=== PATIENT | male | born 1995 | race Hispanic/Latino ===

== ENCOUNTER 2020-10-16 23:30 | Emergency (ER) | payer OTHER ==
[~2020-10-16] VITALS: Ht 167.6 cm; Wt 79.4 kg
[2020-10-16 23:54] VITALS: BP 165/110
[2020-10-17 00:03] VITALS: BP 158/96
[2020-10-17 00:48] LABS: CREATININE 0.9 mg/dL (0.5-1.5); POTASSIUM 3.7 mmol/L (3.5-5.1)
[2020-10-17 00:50] LABS: EOSINOPHILS % (AUTO) 4.7 % (0.0-8.0); HEMATOCRIT 42.9 % (42-54); LYMPHOCYTES % (AUTO) 28.3 % (21.0-51.0); MEAN CORPUSCULAR HGB CONC 34.7 g/dL (32.0-36.0); MEAN CORPUSCULAR VOLUME 92.3 fL (79-99); MONOCYTES % (AUTO) 12.8 % (3.0-13.0); PLATELET COUNT (AUTO) 316 K/uL (130-400); RED BLOOD CELL COUNT(AUTO) 4.65 MIL/uL (4.50-6.20); RED CELL DISTRIBUTION WIDTH 11.6 % (11.0-15.5); WHITE BLOOD COUNT (AUTO) 4.9 K/uL (4.8-10.8)
[2020-10-17 00:52] LABS: ALBUMIN 4.4 g/dL (3.5-5.0); BILIRUBIN,TOTAL 0.7 mg/dL (0.2-1.0); TOTAL PROTEIN, SERUM 8.4 g/dL (6.0-8.3)
[2020-10-17 00:55] VITALS: BP 152/98
[2020-10-17 01:03] LABS: APPEARANCE,URINE Turbid (CLEAR); BILIRUBIN,URINE Negative (NEGATIVE); COLOR,URINE Yellow (YELLOW); GLUCOSE, URINE (UA) Negative (NEGATIVE); KETONES,URINE Negative (NEGATIVE); LEUKOCYTE ESTERASE ,URINE Negative (NEGATIVE); NITRATE,URINE Negative (NEGATIVE); OCCULT BLOOD,URINE Negative (NEGATIVE); PROTEIN,URINE Negative (NEGATIVE)
[2020-10-17 01:10] LABS: AMPHET/METH SCREEN,URINE NEGATIVE (NEGATIVE); BARBITURATE SCREEN, URINE NEGATIVE (NEGATIVE); BENZODIAZEPINES SCREEN,URINE NEGATIVE (NEGATIVE); CANNABINOID SCREEN,URINE NEGATIVE (NEGATIVE); COCAINE SCREEN,URINE NEGATIVE (NEGATIVE); OPIATE SCREEN,URINE NEGATIVE (NEGATIVE); PHENCYCLIDINE SCREEN,URINE NEGATIVE (NEGATIVE)
[2020-10-17] MEDS ORDERED: LORAZEPAM 1 MG TABLET PO ONE (02:00)
[2020-10-17] MEDS ORDERED: LISI10TA24 PO (02:05)
[2020-10-17] MEDS ORDERED: ALPR0.255 PO (02:05)
[2020-10-17] MEDS ORDERED: LORAZEPAM 1 MG TABLET ONE (02:19)
== END 2020-10-17 02:37 | disposition home or self-care (01) ==
LOC: EDH 23:30
DX: I10 Essential (primary) hypertension (principal); F41.1 Generalized anxiety disorder; R10.13 Epigastric pain; R11.2 Nausea with vomiting, unspecified; R00.2 Palpitations
CPT/HCPCS: 36415; 80053; 80305; 81003; 83690; 85025; 86677; 93005

== ENCOUNTER 2021-11-22 21:50 | Emergency (ER) | payer OTHER ==
[~2021-11-22] VITALS: Ht 160 cm; Wt 66.7 kg
[~2021-11-22 21:50] MED LIST: ALPR0.255 PO; LISI10TA24 PO
[2021-11-22] MEDS ORDERED: CEPH500B PO (22:26)
[2021-11-22] MEDS ORDERED: CLONIDINE HCL 0.1 MG TABLET ONE (22:27)
[2021-11-22] MEDS ORDERED: IBUP-2070 PO (22:27)
[2021-11-22] MEDS ORDERED: CEPHALEXIN 500 MG CAPSULE PO ONE (22:30)
[2021-11-22] MEDS ORDERED: HYDROCODONE/ACETAMINOPHEN 5/325 MG TAB PO ONE (22:30)
[2021-11-22] MEDS ORDERED: CLONIDINE HCL 0.1 MG TABLET PO ONE (22:30)
[2021-11-22 22:47] VITALS: BP 139/91
== END 2021-11-22 22:53 | disposition home or self-care (01) ==
LOC: EDH 21:50
DX: S91.332A Puncture wound without foreign body, left foot, initial encounter (principal); S90.32XA Contusion of left foot, initial encounter; I10 Essential (primary) hypertension; F41.9 Anxiety disorder, unspecified; Z79.1 Long term (current) use of non-steroidal anti-inflammatories (NSAID); Z79.899 Other long term (current) drug therapy; X58.XXXA Exposure to other specified factors, initial encounter; Y93.89 Activity, other specified; Y92.89 Other specified places as the place of occurrence of the external cause; Y99.8 Other external cause status
CPT/HCPCS: 73630

== ENCOUNTER 2022-03-29 19:32 | Emergency (ER) | payer OTHER ==
[~2022-03-29] VITALS: Ht 165.1 cm; Wt 72.6 kg
[~2022-03-29 19:32] MED LIST changes: +CEPH500B PO; +IBUP-2070 PO
[2022-03-29] MEDS ORDERED: IBUPROFEN 600 MG TABLET PO ONE (20:00)
[2022-03-29 20:07] LABS: BASOPHILS % (AUTO) 1.3 % (0.0-5.0); EOSINOPHILS % (AUTO) 1.3 % (0.0-8.0); HEMATOCRIT 40.3 % (42-54); LYMPHOCYTES % (AUTO) 34.6 % (21.0-51.0); MEAN CORPUSCULAR HEMOGLOBIN 32.9 pg (27.0-33.0); MEAN CORPUSCULAR HGB CONC 34.7 g/dL (32.0-36.0); MEAN CORPUSCULAR VOLUME 94.6 fL (79-99); MONOCYTES % (AUTO) 11.7 % (3.0-13.0); NEUTROPHILS % (AUTO) 50.9 % (40.0-77.0); PLATELET COUNT (AUTO) 297 K/uL (130-400); RED BLOOD CELL COUNT(AUTO) 4.26 MIL/uL (4.50-6.20); RED CELL DISTRIBUTION WIDTH 11.9 % (11.0-15.5); WHITE BLOOD COUNT (AUTO) 4.5 K/uL (4.8-10.8)
[2022-03-29] MEDS: BENZONATATE 100 MG CAPSULE PO SCH ×2 (20:07→20:08)
[2022-03-29 20:11] LABS: CREATININE 0.8 mg/dL (0.5-1.5); POTASSIUM 3.4 mmol/L (3.5-5.1)
[2022-03-29 20:11] LABS: APPEARANCE,URINE CLEAR (CLEAR); BILIRUBIN,URINE NEGATIVE (NEGATIVE); COLOR,URINE COLORLESS (YELLOW); GLUCOSE, URINE (UA) NEGATIVE (NEGATIVE); KETONES,URINE NEGATIVE (NEGATIVE); LEUKOCYTE ESTERASE ,URINE NEGATIVE Leu/uL (NEGATIVE); NITRATE,URINE NEGATIVE (NEGATIVE); OCCULT BLOOD,URINE NEGATIVE (NEGATIVE); PROTEIN,URINE NEGATIVE (NEGATIVE); UROBILINOGEN,URINE 0.2 mg/dL (0.2-1.0)
[2022-03-29 20:12] VITALS: BP 150/99
[2022-03-29 20:14] LABS: RBC,URINE 0-1 /HPF (0-1); WBC,URINE 0-1 /HPF (0-1)
[2022-03-29 20:20] LABS: ALBUMIN 4.3 g/dL (3.5-5.0)
[2022-03-29] MEDS ORDERED: GUAIF10 PO (20:42)
== END 2022-03-29 20:53 | disposition home or self-care (01) ==
LOC: EDH 19:32
DX: R07.89 Other chest pain (principal); Z20.822 Contact with and (suspected) exposure to COVID-19; F41.9 Anxiety disorder, unspecified; I10 Essential (primary) hypertension; Z79.899 Other long term (current) drug therapy
CPT/HCPCS: 99285; 71045; 87635; 84484; 80053; 85025; 87804 ×2; 81001; 36415; 93005; C9803

== ENCOUNTER 2022-10-16 22:45 | Emergency (ER) | payer OTHER ==
[~2022-10-16] VITALS: Ht 165.1 cm; Wt 54.4 kg
[~2022-10-16 22:45] MED LIST changes: +GUAIF10 PO
[2022-10-16 23:10] LABS: APPEARANCE,URINE CLEAR (CLEAR); BILIRUBIN,URINE NEGATIVE (NEGATIVE); COLOR,URINE COLORLESS (YELLOW); GLUCOSE, URINE (UA) NEGATIVE (NEGATIVE); KETONES,URINE NEGATIVE (NEGATIVE); LEUKOCYTE ESTERASE ,URINE NEGATIVE Leu/uL (NEGATIVE); NITRATE,URINE NEGATIVE (NEGATIVE); OCCULT BLOOD,URINE NEGATIVE (NEGATIVE); PROTEIN,URINE NEGATIVE (NEGATIVE); UROBILINOGEN,URINE 0.2 mg/dL (0.2-1.0)
[2022-10-16 23:12] LABS: BASOPHILS % (AUTO) 1.3 % (0.0-5.0); EOSINOPHILS % (AUTO) 0.5 % (0.0-8.0); HEMATOCRIT 40.6 % (42-54); LYMPHOCYTES % (AUTO) 21.3 % (21.0-51.0); MEAN CORPUSCULAR HEMOGLOBIN 33.2 pg (27.0-33.0); MEAN CORPUSCULAR HGB CONC 34.2 g/dL (32.0-36.0); MEAN CORPUSCULAR VOLUME 96.9 fL (79-99); MONOCYTES % (AUTO) 8.9 % (3.0-13.0); NEUTROPHILS % (AUTO) 67.7 % (40.0-77.0); PLATELET COUNT (AUTO) 302 K/uL (130-400); RED BLOOD CELL COUNT(AUTO) 4.19 MIL/uL (4.50-6.20); RED CELL DISTRIBUTION WIDTH 12.3 % (11.0-15.5); WHITE BLOOD COUNT (AUTO) 3.8 K/uL (4.8-10.8)
[2022-10-16 23:23] LABS: CREATININE 0.7 mg/dL (0.5-1.5); POTASSIUM 3.5 mmol/L (3.5-5.1)
[2022-10-16 23:29] LABS: ALBUMIN 4.6 g/dL (3.5-5.0); TOTAL PROTEIN, SERUM 8.7 g/dL (6.0-8.3)
[2022-10-17] MEDS ORDERED: METOCLOPRAMIDE 10 MG/2 ML VIAL IVP ONE
[2022-10-17] MEDS ORDERED: LACTATED RINGERS 1000ML 1,000 ML IV SCH
[2022-10-17] MEDS ORDERED: ONDA4TAB10 PO (01:54)
[2022-10-17 02:07] VITALS: BP 130/84
== END 2022-10-17 02:48 | disposition home or self-care (01) ==
LOC: EDH 22:45
DX: F10.10 Alcohol abuse, uncomplicated (principal); R11.2 Nausea with vomiting, unspecified; I10 Essential (primary) hypertension; F41.9 Anxiety disorder, unspecified; Z20.822 Contact with and (suspected) exposure to COVID-19; Z79.899 Other long term (current) drug therapy
CPT/HCPCS: 99284; 96374; 96361; 87635; 80053; 83690; 85025; 87804 ×2; 81003; 36415; 74018; C9803; J7120; J2765

== ENCOUNTER 2022-11-15 16:21 | Emergency (ER) | payer OTHER ==
[~2022-11-15] VITALS: Ht 165.1 cm; Wt 63.5 kg
[~2022-11-15 16:21] MED LIST changes: +ONDA4TAB10 PO
[2022-11-15] MEDS ORDERED: ONDANSETRON 4MG INJ IVP ONE (19:30)
[2022-11-15] MEDS ORDERED: LACTATED RINGERS 1000ML 1,000 ML IV ONE ×2 (19:30→19:59)
[2022-11-15 20:00] LABS: BASOPHILS % (AUTO) 0.4 % (0.0-5.0); LYMPHOCYTES % (AUTO) 7.5 % (21.0-51.0); MEAN CORPUSCULAR HEMOGLOBIN 32.8 pg (27.0-33.0); MEAN CORPUSCULAR HGB CONC 34.8 g/dL (32.0-36.0); MEAN CORPUSCULAR VOLUME 94.2 fL (79-99); MONOCYTES % (AUTO) 8.3 % (3.0-13.0); NEUTROPHILS % (AUTO) 83.4 % (40.0-77.0); PLATELET COUNT (AUTO) 351 K/uL (130-400); RED BLOOD CELL COUNT(AUTO) 4.67 MIL/uL (4.50-6.20); RED CELL DISTRIBUTION WIDTH 11.9 % (11.0-15.5); WHITE BLOOD COUNT (AUTO) 7.1 K/uL (4.8-10.8)
[2022-11-15] MEDS ORDERED: ONDANSETRON 4MG INJ ONE (20:00)
[2022-11-15 20:02] LABS: APPEARANCE,URINE CLOUDY (CLEAR); BILIRUBIN,URINE 0.5 mg/dL (NEGATIVE); COLOR,URINE ORANGE (YELLOW); GLUCOSE, URINE (UA) NEGATIVE (NEGATIVE); KETONES,URINE 20 mg/dL (NEGATIVE); LEUKOCYTE ESTERASE ,URINE NEGATIVE Leu/uL (NEGATIVE); NITRATE,URINE NEGATIVE (NEGATIVE); PH,URINE 5.5 (5.0-8.0); PROTEIN,URINE 300 mg/dL (NEGATIVE)
[2022-11-15 20:08] LABS: BACTERIA,URINE RARE /HPF (None Seen); MUCUS,URINE MOD LPF (None Seen); SQUAMOUS EPITHELIAL CELL,UR RARE /HPF (0-2)
[2022-11-15 20:14] LABS: POTASSIUM 4.1 mmol/L (3.5-5.1)
[2022-11-15 20:17] LABS: ALBUMIN 5.2 g/dL (3.5-5.0); TOTAL PROTEIN, SERUM 9.8 g/dL (6.0-8.3)
[2022-11-15] MEDS ORDERED: LORAZEPAM 2 MG/ML 1 ML VIAL IVP ONE (21:00)
[2022-11-15] MEDS ORDERED: FAMO-136 PO (23:41)
[2022-11-15] MEDS ORDERED: ONDA4TAB10 PO (23:41)
[2022-11-16 00:13] VITALS: BP 144/89; PULSE 74; RESP 16; O2SAT 99
== END 2022-11-16 00:17 | disposition home or self-care (01) ==
LOC: EDH 16:21
DX: R11.10 Vomiting, unspecified (principal); F10.10 Alcohol abuse, uncomplicated; E86.0 Dehydration; I10 Essential (primary) hypertension; E11.9 Type 2 diabetes mellitus without complications; F41.9 Anxiety disorder, unspecified; Y90.9 Presence of alcohol in blood, level not specified
CPT/HCPCS: 99285; 96374; 76705; 96361; 96375; 82550; 80053; 83690; 85025; 81001; 36415; J7120; J2405; J2060

== ENCOUNTER 2023-05-15 12:13 | Emergency (ER) | payer OTHER ==
[~2023-05-15] VITALS: Ht 165.1 cm; Wt 66.7 kg
[~2023-05-15 12:13] MED LIST changes: +FAMO-136 PO
[2023-05-15] MEDS ORDERED: ACETAMINOPHEN 500 MG TABLET PO ONE (13:00)
[2023-05-15 13:30] VITALS: BP 129/92; PULSE 71; RESP 17; O2SAT 99
== END 2023-05-15 14:02 | disposition home or self-care (01) ==
LOC: EDH 12:13
DX: S00.03XA Contusion of scalp, initial encounter (principal); I10 Essential (primary) hypertension; F41.9 Anxiety disorder, unspecified; Z79.899 Other long term (current) drug therapy; W18.39XA Other fall on same level, initial encounter; Y93.89 Activity, other specified; Y92.89 Other specified places as the place of occurrence of the external cause; Y99.8 Other external cause status
CPT/HCPCS: 70450